=== PATIENT | female | born 1995 | race African-American/Black ===

== ENCOUNTER 2017-11-30 21:52 | Emergency (ER) | payer SELFPAY ==
[~2017-11-30] VITALS: Ht 165.1 cm; Wt 77.0 kg
[2017-11-30] MEDS ORDERED: OLANZAPINE 5MG TABLET ODT PO ONE (22:30)
[2017-11-30] MEDS: LORAZEPAM 1MG TABLET PO ONE ×2 (22:34→23:19)
[2017-11-30 23:35] LABS: BASOPHILS % 0.9 % (0.0-2.0); EOSINOPHILS % 0.4 % (0.0-5.0); HEMATOCRIT. 37.6 % (36.0-48.0); HEMOGLOBIN. 12.9 g/dL (12.0-16.0); LYMPHOCYTES % 24.7 % (20.0-50.0); MEAN CORPUSCULAR HEMOGLOBIN 33.4 pg (28.0-32.0); MEAN CORPUSCULAR VOLUME 97.2 fL (81.0-99.0); MEAN PLATELET VOLUME 10.8 fl (7.4-10.4); MONOCYTES % 6.8 % (2.0-8.0); NEUTROPHILS % 67.2 % (40.0-76.0); PLATELET 169 x1000/uL (130-400); RED BLOOD CELL COUNT 3.87 mill/uL (4.2-5.4); RED CELL DISTRIBUTION WIDTH 14.1 % (11.6-14.6)
[2017-11-30 23:37] LABS: CHLORIDE 107 mEq/L (98-107)
[2017-11-30 23:45] LABS: ETHANOL BLOOD < 10 mg/dL
[2017-12-01 00:04] LABS: HCG SCREEN NEGATIVE
[2017-12-01 00:30] LABS: *AMPHETAMINES SCREEN URINE NEGATIVE (NEGATIVE); *BARBITURATES SCREEN URINE NEGATIVE (NEGATIVE); *BENZODIAZEPINES SCREEN URINE NEGATIVE (NEGATIVE); *COCAINE SCREEN URINE NEGATIVE (NEGATIVE)
[2017-12-01 00:31] LABS: METHADONE URINE SCREEN NEGATIVE (NEGATIVE); OPIATES URINE SCREEN NEGATIVE (NEGATIVE); PHENCYCLIDINE URINE SCREEN NEGATIVE (NEGATIVE)
[2017-12-01 00:34] LABS: CANNABINOID URINE SCREEN PRESUMTIVE POSITIVE (NEGATIVE)
[2017-12-01 15:34] VITALS: BP 138/80
== END 2017-12-01 15:37 ==
LOC: ER 23:45
DX: R45.851 Suicidal ideations (principal); F31.9 Bipolar disorder, unspecified; F12.10 Cannabis abuse, uncomplicated
CPT/HCPCS: 36415; 80048; 80305; 80307; 80329; 81025; 84703; 85025; 99285; G0482; Z7610